=== PATIENT | male | born 1990 | race American Indian/Alaskan Native ===

== ENCOUNTER 2020-09-15 10:38 | Emergency (ER) | payer SELFPAY ==
[2020-09-15 10:58] VITALS: BP 153/107
--- NOTE | 2020-09-15 11:18 | Emergency Department Report ---
Chief Complaint: Urogenital-Male Stated Complaint: POSS STD Time Seen by Provider: 09/15/20 11:14 - HPI History of Present Illness: Patient is a 30-year-old male who presents emergency room stating he was told by the [facility] donation center that his blood work came back positive for syphilis. He states that his only symptom is that he has noticed that he has a rash to his feet and palms. He denies any other symptoms at all. He does not report any abdominal pain, pain or swelling in the testicles, dysuria, penile discharge, fever, vomiting, diarrhea. vss on exam: Non toxic appearing, no acute distress atraumatic, normocephalic normal appearance of the eyes, EOMI, no periorbital edema or ecchymosis moist mucus membranes No respiratory distress, no accessory muscle use A&O x4, no focal neuro deficit skin is warm, dry, macules present to the bilateral palms Patient is presenting to the emergency room secondary to being told he is positive for syphilis by the plasma donation center Advised patient Please follow-up with the health department or an STD clinic for full evaluation. it is very important you follow up to prevent progression. Please have any partner tested and treated as well. Avoid sexual intercourse. Return to emergency room for new or worsening symptoms. pt given the appropriate resources Discussed the importance of follow-up Discussed very strict return precautions with patient Medical screening examination performed and there is no threat to life or limb at this time - Exam Vital Signs: Vital Signs 09/15/20 10:56 Temperature 98.0 F Pulse Rate 56 L Respiratory 20 Rate Blood Pressure 153/107 O2 Sat by Pulse 99 Oximetry MSE screening note: Focused history and physical exam performed. Due to findings the following was ordered: ED Disposition for MSE Clinical Impression: Concern about STD in male without diagnosis Disposition: Z-07 MED SCREENING EXAM-LEFT Is pt being admited?: No Does the pt Need Aspirin: No Condition: Stable Additional Instructions: Please follow-up with the health department or an STD clinic for full evaluation. it is very important you follow up to prevent progression. Please have any partner tested and treated as well. Avoid sexual intercourse. Return to emergency room for new or worsening symptoms. walk in clinic: [facility] Address: [address] [place] [id number] Referrals: PRIMARY CARE [Primary Care Provider] - 2-3 Days [facility] [Outside] - 2-3 Days Time of Disposition: 11:17 Print Language: VINCENTIAN
== END 2020-09-15 11:20 | disposition left against medical advice (07) ==
LOC: ED 10:38
DX: Z71.1 Person with feared health complaint in whom no diagnosis is made (principal); Z53.21 Procedure and treatment not carried out due to patient leaving prior to being seen by health care provider